=== PATIENT | female | born 1950 | race Hispanic/Latino ===

== ENCOUNTER 2018-12-29 07:24 | Day surgery (SDC) | payer OTHER ==
[~2018-12-29] VITALS: Ht 142.2 cm; Wt 55.3 kg
[~2018-12-29 07:24] MED LIST: CALC-909 PO; FOLI1TAB15 PO; PROPOFOL 10 MG/ML 20ML VIAL IV ONE; SODIUM CHLORIDE 0.9% 1000ML 1,000 ML IV ONE
[2018-12-29 07:38] VITALS: BP 139/55
[2018-12-29] MEDS ORDERED: AZAT50 PO (07:45)
[2018-12-29 09:06] VITALS: BP 93/33
[2018-12-29 09:11] VITALS: BP 107/45
[2018-12-29 09:16] VITALS: BP 116/48
[2018-12-29 09:21] VITALS: BP 122/60
[2018-12-29 09:26] VITALS: BP 126/69
== END 2018-12-29 09:37 | disposition home or self-care (01) ==
LOC: DAH 07:24 → ENDO 07:24
PROVIDERS: ATTEND Internal Medicine
DX: R12 Heartburn (principal); K31.89 Other diseases of stomach and duodenum; Z79.899 Other long term (current) drug therapy; M19.90 Unspecified osteoarthritis, unspecified site; Z98.890 Other specified postprocedural states; Z86.010 Personal history of colon polyps; Z83.3 Family history of diabetes mellitus; Z82.5 Family history of asthma and other chronic lower respiratory diseases
CPT/HCPCS: 43235; A4215; A4221; A4222; A4223; A4606; A4615; A4663; J2704; J7030